=== PATIENT | female | born 1985 | race African-American/Black ===

== ENCOUNTER 2018-07-14 10:29 | Inpatient (IN) | payer OTHER, MEDICAID ==
[~2018-07-14] VITALS: Ht 157.5 cm; Wt 79.0 kg
[2018-07-14 10:50] VITALS: BP 132/82
[2018-07-14 11:05] LABS: BASOPHILS # (AUTO) 0.03 x10^3/uL (0-0.1); BASOPHILS % (AUTO) 0 % (0-1); EOSINOPHILS # (AUTO) 0.06 x10^3/uL (0-0.4); EOSINOPHILS % (AUTO) 1 % (1-7); LYMPHOCYTES # (AUTO) 1.76 x10^3/uL (1-3.4); LYMPHOCYTES % (AUTO) 19 % (22-44); MD NO; MEAN CORPUSCULAR HEMOGLOBIN 32.9 pg (27.0-34.8); MEAN CORPUSCULAR VOLUME 96.6 fL (80-100); MEAN PLATELET VOLUME 7.2 fL (7.4-10.4); MONOCYTES # (AUTO) 0.86 x10^3/uL (0.2-0.8); MONOCYTES % (AUTO) 10 % (2-9); NEUTROPHILS # (AUTO) 6.38 x10^3/uL (1.8-6.8); NEUTROPHILS % (AUTO) 70 % (42-75); PLATELET COUNT 319 x10^3/uL (130-400); RED BLOOD COUNT 2.82 x10^6/uL (3.82-5.3)
[2018-07-14 11:12] LABS: MICROSCOPIC INDICATED
[2018-07-14 11:13] LABS: ANION GAP 6 mmol/L (5-15); CALCIUM 8.2 mg/dL (8.5-10.1); CHLORIDE 108 mmol/L (98-107); CREATININE 0.51 mg/dL (0.55-1.02)
[2018-07-14 11:14] LABS: ALANINE AMINOTRANSFERASE 13 U/L (12-78); ALBUMIN 2.5 g/dL (3.4-5.0)
[2018-07-14 11:16] LABS: ALKALINE PHOSPHATASE 115 U/L (45-117); BILIRUBIN,TOTAL 0.3 mg/dL (0.2-1.0); TOTAL PROTEIN 6.2 g/dL (6.4-8.2)
[2018-07-14 12:11] LABS: CREATININE,URINE RANDOM 46.9 mg/dL
[2018-07-14] MEDS ORDERED: BETAMETHASONE 6 MG/ML, 5ML IM ONE (14:27)
[2018-07-14] MEDS: BETAMETHASONE 6 MG/ML, 5ML IM SCH (14:33)
[2018-07-14] MEDS ORDERED: ACETAMINOPHEN 325 MG TABLET ONE (20:11)
[2018-07-14] MEDS: ACETAMINOPHEN 325 MG TABLET PO PRN (20:13)
[2018-07-14] MEDS ORDERED: OXYTOCIN 30U/ 0.9% NaCL 500ML 500 ML IV ONE (20:48)
[2018-07-14] MEDS ORDERED: MAGNESIUM SULF. PMX 20GM/500ML 500 ML IV ONE (20:48)
[2018-07-14] MEDS ORDERED: FENTANYL PF 100 MCG/2ML IV PRN (21:00)
[2018-07-14] MEDS: LACTATED RINGERS 1,000 ML IV SCH (21:00)
[2018-07-14] MEDS ORDERED: MAGNESIUM SULFATE PMX 4GM/100M 100 ML IVPB ONE (21:00)
[2018-07-14] MEDS ORDERED: FENTANYL PF 100 MCG/2ML IVPush PRN (21:00)
[2018-07-14] MEDS ORDERED: MISOPROSTOL 25 MCG TABLET VG PRN (21:00)
[2018-07-14] MEDS ORDERED: ONDANSETRON 2MG/ML, 2ML IVPush PRN (21:00)
[2018-07-14 21:18] LABS: BASOPHILS # (AUTO) 0.01 x10^3/uL (0-0.1); BASOPHILS % (AUTO) 0 % (0-1); EOSINOPHILS % (AUTO) 0 % (1-7); LYMPHOCYTES # (AUTO) 1.07 x10^3/uL (1-3.4); LYMPHOCYTES % (AUTO) 10 % (22-44); MD NO; MEAN CORPUSCULAR HEMOGLOBIN 32.9 pg (27.0-34.8); MEAN CORPUSCULAR HGB CONC 34.2 g/dL (32.4-35.8); MEAN CORPUSCULAR VOLUME 96.2 fL (80-100); MEAN PLATELET VOLUME 7.3 fL (7.4-10.4); MONOCYTES # (AUTO) 0.17 x10^3/uL (0.2-0.8); MONOCYTES % (AUTO) 2 % (2-9); NEUTROPHILS # (AUTO) 9.05 x10^3/uL (1.8-6.8); NEUTROPHILS % (AUTO) 88 % (42-75); PLATELET COUNT 340 x10^3/uL (130-400); RED BLOOD COUNT 3.13 x10^6/uL (3.82-5.3); RED CELL DISTRIBUTION WIDTH 12.9 % (9.6-15.2)
[2018-07-14] MEDS ORDERED: AMPICILLIN 2 GM in SODIUM CHLORIDE 0.9% 100 ML IVPB ONE (21:30)
[2018-07-14] MEDS: MAGNESIUM SULF. PMX 20GM/500ML 500 ML IV SCH (21:34)
[2018-07-14 22:52] LABS: AMPHETAMINE SCREEN, URINE Negative (Negative); BARBITURATE SCREEN, URINE Negative (Negative); BENZODIAZEPINE SCREEN, URINE Negative (Negative); CANNABINOID SCREEN, URINE Positive (Negative); COCAINE SCREEN, URINE Negative (Negative); METHADONE SCREEN, URINE Negative (Negative); OPIATE SCREEN, URINE Negative (Negative)
[2018-07-14] MEDS ORDERED: MISOPROSTOL 25 MCG TABLET ONE (23:08)
[2018-07-15] MEDS: AMPICILLIN 1 GM in SODIUM CHLORIDE 0.9% 100 ML IVPB SCH ×2 (03:00→14:03)
[2018-07-15] MEDS ORDERED: MISOPROSTOL 25 MCG TABLET ONE (03:02)
[2018-07-15] MEDS ORDERED: MAGNESIUM SULF. PMX 20GM/500ML 500 ML IV ONE ×2 (05:30→15:27)
[2018-07-15] MEDS: LACTATED RINGERS 1,000 ML IV SCH ×2 (05:32→12:48)
[2018-07-15] MEDS: MAGNESIUM SULF. PMX 20GM/500ML 500 ML IV SCH ×2 (05:33→15:37)
[2018-07-15] MEDS ORDERED: FENTANYL/BUPIV./NS/PF 250 ML EPIDCONT SCH ×2 (07:31→09:41)
[2018-07-15] MEDS ORDERED: OXYTOCIN 30U/ 0.9% NaCL 500ML 500 ML IV PRN (07:32)
[2018-07-15] MEDS ORDERED: OXYTOCIN 30U/ 0.9% NaCL 500ML 500 ML ONE ×2 (07:37→15:27)
[2018-07-15] MEDS ORDERED: FENTANYL PF 500 MCG, BUPIVACAINE/PF 0.5%, 30ML 62.5 ML in SODIUM CHLORIDE 0.9% 177.5 ML EPIDCONT SCH (08:00)
[2018-07-15] MEDS ORDERED: BUPIVACAINE 0.25% ONE (09:08)
[2018-07-15] MEDS ORDERED: FENTANYL/BUPIV./NS/PF 250 ML EPIDCONT ONE (09:08)
[2018-07-15] MEDS ORDERED: LACTATED RINGERS 1,000 ML IV SCH ×3 (09:41→15:16)
[2018-07-15] MEDS ORDERED: ACETAMINOPHEN 325 MG TABLET ONE (09:49)
[2018-07-15] MEDS: ACETAMINOPHEN 325 MG TABLET PO PRN (09:51)
[2018-07-15] MEDS ORDERED: DIPHENHYDRAMINE 50 MG/ML, 1ML IVPush PRN (10:00)
[2018-07-15] MEDS ORDERED: ONDANSETRON 2MG/ML, 2ML IVPush PRN (10:00)
[2018-07-15] MEDS ORDERED: LACTATED RINGERS 1,000 ML IVBOLUS PRN (10:00)
[2018-07-15] MEDS ORDERED: NALOXONE 0.4 MG/ML, 1ML IVPush PRN (10:00)
[2018-07-15] MEDS ORDERED: EPHEDRINE 50 MG/ML, 1ML IVPush PRN (10:00)
[2018-07-15] MEDS ORDERED: LACTATED RINGERS 1,000 ML INTUTE PRN (13:00)
[2018-07-15] MEDS ORDERED: LACTATED RINGERS 1,000 ML INTUTE SCH (13:00)
[2018-07-15] MEDS: BETAMETHASONE 6 MG/ML, 5ML IM SCH (13:30)
[2018-07-15] MEDS ORDERED: NEWBORN KIT ONE (15:10)
[2018-07-15] MEDS ORDERED: MISOPROSTOL 200 MCG TABLET ONE (15:17)
[2018-07-15] MEDS ORDERED: SIMETHICONE 80 MG CHEW TAB PO PRN (15:30)
[2018-07-15] MEDS ORDERED: morphine SULFATE 10 MG/ML, 1ML IVPush PRN (15:30)
[2018-07-15] MEDS ORDERED: ONDANSETRON 2MG/ML, 2ML IV PRN (15:30)
[2018-07-15] MEDS ORDERED: MEASLES,MUMPS&RUBELLA VACC/PF 0.5 ML SQ-VACC PRN (15:30)
[2018-07-15] MEDS ORDERED: CALCIUM CARBONATE 500 MG TAB.CHEW PO PRN (15:30)
[2018-07-15] MEDS ORDERED: OXYcodone IR 5MG TABLET PO PRN (15:30)
[2018-07-15] MEDS ORDERED: CARBOPROST TROMETHAMINE 250 MCG/ML, 1ML IM PRN (15:30)
[2018-07-15] MEDS ORDERED: KETOROLAC 30 MG/1 ML IV SCH (15:30)
[2018-07-15] MEDS ORDERED: DIPH,PERTUSS(ACELL),TET VAC/PF NC IM-VACC PRN (15:30)
[2018-07-15] MEDS: OXYTOCIN 30U/ 0.9% NaCL 500ML 500 ML IV SCH (15:33)
[2018-07-15] MEDS ORDERED: IBUPROFEN 600 MG TABLET ONE (17:58)
[2018-07-15] MEDS: IBUPROFEN 600 MG TABLET PO PRN (18:00)
[2018-07-15] MEDS ORDERED: KETOROLAC 30 MG/1 ML IV PRN (18:00)
[2018-07-15] MEDS ORDERED: OXYcodone/APAP 5/325MG TABLET ONE (19:18)
[2018-07-15] MEDS: OXYcodone/APAP 5/325MG TABLET PO PRN (19:26)
[2018-07-16] MEDS ORDERED: IBUPROFEN 600 MG TABLET ONE (00:07)
[2018-07-16] MEDS: IBUPROFEN 600 MG TABLET PO PRN ×2 (00:10→20:21)
[2018-07-16 01:10] LABS: BASOPHILS % (AUTO) 0 % (0-1); EOSINOPHILS # (AUTO) 0.03 x10^3/uL (0-0.4); EOSINOPHILS % (AUTO) 0 % (1-7); LYMPHOCYTES # (AUTO) 1.37 x10^3/uL (1-3.4); LYMPHOCYTES % (AUTO) 9 % (22-44); MD NO; MEAN CORPUSCULAR HEMOGLOBIN 32.6 pg (27.0-34.8); MEAN CORPUSCULAR VOLUME 96.1 fL (80-100); MEAN PLATELET VOLUME 7.3 fL (7.4-10.4); MONOCYTES # (AUTO) 1.36 x10^3/uL (0.2-0.8); MONOCYTES % (AUTO) 8 % (2-9); NEUTROPHILS # (AUTO) 13.39 x10^3/uL (1.8-6.8); NEUTROPHILS % (AUTO) 83 % (42-75); PLATELET COUNT 303 x10^3/uL (130-400); RED BLOOD COUNT 2.52 x10^6/uL (3.82-5.3); RED CELL DISTRIBUTION WIDTH 12.6 % (9.6-15.2)
[2018-07-16] MEDS: OXYTOCIN 30U/ 0.9% NaCL 500ML 500 ML IV SCH ×3 (01:16→21:16)
[2018-07-16] MEDS ORDERED: MAGNESIUM SULF. PMX 20GM/500ML 500 ML IV ONE (01:41)
[2018-07-16] MEDS: MAGNESIUM SULF. PMX 20GM/500ML 500 ML IV SCH (01:47)
[2018-07-16 04:46] VITALS: BP 131/77
[2018-07-16] MEDS: PRENATAL VIT/IRON/FA 1 EACH TABLET PO SCH (09:00)
[2018-07-16] MEDS ORDERED: OXYcodone/APAP 5/325MG TABLET ONE (13:00)
[2018-07-16] MEDS: OXYcodone/APAP 5/325MG TABLET PO PRN ×2 (13:01→20:21)
[2018-07-16 15:30] VITALS: BP 119/76
[2018-07-16 19:20] VITALS: BP 128/78
[2018-07-16] MEDS: DOCUSATE 100 MG CAPSULE PO PRN (20:21)
[2018-07-17 01:30] VITALS: BP 133/68
[2018-07-17 04:30] VITALS: BP 138/84
[2018-07-17] MEDS: OXYcodone/APAP 5/325MG TABLET PO PRN ×3 (05:29→16:02)
[2018-07-17] MEDS: IBUPROFEN 600 MG TABLET PO PRN ×2 (05:29→12:55)
[2018-07-17] MEDS: OXYTOCIN 30U/ 0.9% NaCL 500ML 500 ML IV SCH (07:24)
[2018-07-17] MEDS: DOCUSATE 100 MG CAPSULE PO PRN (08:12)
[2018-07-17] MEDS: PRENATAL VIT/IRON/FA 1 EACH TABLET PO SCH (08:12)
[2018-07-17 08:25] VITALS: BP 152/92
[2018-07-17 10:05] VITALS: BP 143/84
[2018-07-17 12:19] VITALS: BP 129/79
[2018-07-17] MEDS ORDERED: IBUP-1222 PO (14:13)
== END 2018-07-17 19:30 | disposition home or self-care (01) | DRG 807 ==
LOC: LDOP 10:29 → OBSVTOIN 14:35 → LDIP 14:35 → 2NE 07-15 19:47 → 2NW 07-16 15:02
PROVIDERS: ADMIT Obstetrics & Gynecology Maternal & Fetal Medicine; ATTEND Obstetrics & Gynecology Maternal & Fetal Medicine
PROC: 10E0XZZ Delivery of Products of Conception, External Approach (ICD-10-PCS; principal; 2018-07-15)
PROC: 10H07YZ Insertion of Other Device into Products of Conception, Via Natural or Artificial Opening (ICD-10-PCS; 2018-07-15)
DX: O14.14 Severe pre-eclampsia complicating childbirth (principal); Z37.0 Single live birth; Z3A.35 35 weeks gestation of pregnancy; Z87.891 Personal history of nicotine dependence; O76 Abnormality in fetal heart rate and rhythm complicating labor and delivery
CPT/HCPCS: 36415; 80053; 80307; 81001; 82570; 82803; 83735; 84156; 84550; 85025; 86850; 86900; 90715; G0378; J0290; J0702; J2590; J3475; J7120

== ENCOUNTER 2018-07-24 13:34 | Observation (INO) | payer OTHER, MEDICAID ==
[2018-07-24] VITALS (8 sets, daily range): BP systolic 119–130; BP diastolic 72–84
[~2018-07-24 13:34] MED LIST: IBUP-1222 PO
--- NOTE | 2018-07-24 14:32 | NUR ---
PT REPORTING SHE SHE "HAS BLOOD POURING OUT OF HER". CHECKED PT AND SATURATED. MD NOTIFIED. PELVIC EXAM PERFORMED WITH LARGE AMOUNT OF CLOTS NOTED. PT TOLERATED WELL. CLEANED PT UP NOW WAITING BLOOD WORK AND US
[2018-07-24 14:58] LABS: ALANINE AMINOTRANSFERASE 15 U/L (12-78); ALBUMIN 2.6 g/dL (3.4-5.0); ANION GAP 4 mmol/L (5-15); CALCIUM 7.7 mg/dL (8.5-10.1); CHLORIDE 114 mmol/L (98-107); CREATININE 0.79 mg/dL (0.55-1.02)
[2018-07-24 15:01] LABS: ALKALINE PHOSPHATASE 63 U/L (45-117); BILIRUBIN,TOTAL 0.3 mg/dL (0.2-1.0); TOTAL PROTEIN 5.7 g/dL (6.4-8.2)
[2018-07-24] MEDS ORDERED: SUCCINYLCHOLINE 20 MG/ML, 10ML ONE (15:02)
[2018-07-24] MEDS ORDERED: PROPOFOL 10 MG/ML, 20ML ONE (15:02)
[2018-07-24] MEDS ORDERED: CEFAZOLIN 1,000 MG ONE (15:02)
[2018-07-24] MEDS ORDERED: DEXAMETHASONE 4 MG/ML, 1ML ONE (15:02)
[2018-07-24] MEDS ORDERED: ROCURONIUM 10MG/ML,5ML ONE (15:02)
[2018-07-24] MEDS ORDERED: ONDANSETRON 2MG/ML, 2ML ONE ×2 (15:02→18:12)
[2018-07-24 15:18] LABS: BASOPHILS # (AUTO) 0.03 x10^3/uL (0-0.1); BASOPHILS % (AUTO) 0 % (0-1); EOSINOPHILS # (AUTO) 0.08 x10^3/uL (0-0.4); EOSINOPHILS % (AUTO) 1 % (1-7); LYMPHOCYTES # (AUTO) 2.03 x10^3/uL (1-3.4); LYMPHOCYTES % (AUTO) 26 % (22-44); MD NO; MEAN CORPUSCULAR HEMOGLOBIN 32.2 pg (27.0-34.8); MEAN CORPUSCULAR HGB CONC 33.5 g/dL (32.4-35.8); MEAN CORPUSCULAR VOLUME 96.1 fL (80-100); MEAN PLATELET VOLUME 6.5 fL (7.4-10.4); MONOCYTES # (AUTO) 0.54 x10^3/uL (0.2-0.8); MONOCYTES % (AUTO) 7 % (2-9); NEUTROPHILS # (AUTO) 5.09 x10^3/uL (1.8-6.8); NEUTROPHILS % (AUTO) 66 % (42-75); PLATELET COUNT 452 x10^3/uL (130-400); RED BLOOD COUNT 2.39 x10^6/uL (3.82-5.3); RED CELL DISTRIBUTION WIDTH 12.9 % (9.6-15.2)
--- NOTE | 2018-07-24 15:47 | NUR ---
C/O OF NAUSEA AND DIZZY VSS RECHECKED WNL
[2018-07-24] MEDS ORDERED: SODIUM CHLORIDE 0.9% 1,000 ML IV ONE (15:57)
[2018-07-24] MEDS ORDERED: SODIUM CHLORIDE FLUSH 10ML SYR IVF PRN (16:00)
[2018-07-24] MEDS ORDERED: ONDANSETRON 2MG/ML, 2ML IVPush ONE (16:00)
[2018-07-24] MEDS ORDERED: SODIUM CHLORIDE 0.9% 1,000ML IVBOLUS ONE (16:00)
[2018-07-24] MEDS ORDERED: MORPHINE SULFATE 4 MG/ML, 1ML ONE (16:11)
[2018-07-24] MEDS ORDERED: MORPHINE SULFATE 4 MG/ML, 1ML IVPush PRN (16:30)
[2018-07-24] MEDS ORDERED: MISOPROSTOL 200 MCG TABLET ONE (16:43)
[2018-07-24] MEDS ORDERED: OXYTOCIN 10 UNITS/ML, 1ML ONE (16:44)
[2018-07-24] MEDS ORDERED: SILVER NITRATE STICK TP ONE (16:44)
[2018-07-24] MEDS ORDERED: METHYLERGONOVINE 0.2 MG/ML IM ONE (16:44)
[2018-07-24] MEDS ORDERED: MIDAZOLAM 1 MG/ML, 2ML ONE (16:51)
[2018-07-24] MEDS ORDERED: FENTANYL PF 100 MCG/2ML ONE ×3 (16:51→19:44)
[2018-07-24] MEDS ORDERED: ONDANSETRON ODT 8 MG PO PRN (18:00)
[2018-07-24] MEDS ORDERED: DIAZEPAM 5 MG/ML, 2ML IVPush PRN (18:00)
[2018-07-24] MEDS ORDERED: ACETAMINOPHEN 325 MG TABLET PO PRN (18:00)
[2018-07-24] MEDS ORDERED: PROMETHAZINE 25 MG/ML, 1ML IV PRN (18:00)
[2018-07-24] MEDS ORDERED: ONDANSETRON 2MG/ML, 2ML IV PRN (18:00)
[2018-07-24] MEDS ORDERED: MEPERIDINE/PF 25MG/ML,1ML ONE (18:00)
[2018-07-24] MEDS ORDERED: OXYcodone 5 MG/5 ML ORAL.SOL UDC PO PRN (18:00)
[2018-07-24] MEDS ORDERED: HYDROmorphone 2 MG/ML, 1ML IVPush PRN (18:00)
[2018-07-24] MEDS: MEPERIDINE/PF 25MG/0.5ML IVPush PRN ×2 (18:04→18:10)
[2018-07-24] MEDS: FENTANYL PF 100 MCG/2ML IV PRN ×2 (18:40→20:50)
[2018-07-24 18:41] LABS: MEAN CORPUSCULAR HEMOGLOBIN 32.2 pg (27.0-34.8); MEAN CORPUSCULAR HGB CONC 33.4 g/dL (32.4-35.8); MEAN CORPUSCULAR VOLUME 96.4 fL (80-100); MEAN PLATELET VOLUME 6.4 fL (7.4-10.4); PLATELET COUNT 391 x10^3/uL (130-400); RED BLOOD COUNT 1.98 x10^6/uL (3.82-5.3); RED CELL DISTRIBUTION WIDTH 12.9 % (9.6-15.2)
[2018-07-24] MEDS ORDERED: DIPHENHYDRAMINE 50 MG/ML, 1ML IVPush ONE (19:00)
[2018-07-24] MEDS ORDERED: DIPHENHYDRAMINE 50 MG/ML, 1ML ONE (19:12)
[2018-07-24] MEDS ORDERED: ACETAMINOPHEN 650 MG/20.3 ML UDC ONE (19:12)
[2018-07-24 19:29] LABS: MD YES
[2018-07-24 20:30] LABS: LYMPH#(MANUAL) 1.87 x10^3/uL (1-3.4); LYMPHS% (MANUAL) 10 % (22-44); SEGS% (MANUAL) 90 % (42-75)
[2018-07-24 20:31] LABS: <PLATELET ESTIMATE> ADEQUATE; <PLT MORPHOLOGY> NORMAL PLT MORPH; <RBC MORPHOLOGY> NORMAL
== END 2018-07-25 00:50 | disposition home or self-care (01) ==
LOC: ED 16:07 → EDIP 16:24 → 4NOR 21:14
PROVIDERS: ADMIT Obstetrics & Gynecology; ATTEND Obstetrics & Gynecology
DX: O72.1 Other immediate postpartum hemorrhage (principal); D62 Acute posthemorrhagic anemia; N85.2 Hypertrophy of uterus; O99.02 Anemia complicating childbirth; Z37.0 Single live birth
CPT/HCPCS: 36415; 36430; 59160; 76830; 80053; 85014; 85018; 85025; 86850; 86900; 86923; 88305; 96374; 96375; 99284; G0378; J0330; J0690; J1100; J2175; J2210; J2250; J2405; J2590; J2704; J3010; P9016